=== PATIENT | male | born 1995 | race Caucasian/White ===

== ENCOUNTER → 2021-12-31 | Outpatient (CLI) | payer BC | LOC: NM 08:00 | DX: R79.89 Other specified abnormal findings of blood chemistry (principal) | CPT/HCPCS: 78012; A9516 ==

== ENCOUNTER → 2022-01-11 | Outpatient (CLI) | payer BC | LOC: KOH-I 08:00 | DX: E04.2 Nontoxic multinodular goiter (principal) | CPT/HCPCS: 76536 ==